=== PATIENT | female | born 1975 | race Caucasian/White ===

== ENCOUNTER 2024-08-30 20:08 | Emergency (ER) | payer OTHER ==
[~2024-08-30] VITALS: Ht 167.6 cm; Wt 120.2 kg
[2024-08-30 20:18] VITALS: PULSE 88; RESP 18; TEMP 97.1
[2024-08-30] MEDS: TRAMADOL HCL 50 MG TAB PO ONE (21:00)
[2024-08-30] MEDS: IBUPROFEN 600 MG TAB PO STA (21:00)
[2024-08-30] MEDS ORDERED: NAPROXEN250 MG PO (21:22)
[2024-08-30] MEDS ORDERED: LISINOPRIL-HCT1 EAC1 PO (21:23)
[2024-08-30 21:36] VITALS: BP 131/97; PULSE 86; RESP 18; TEMP 97.5; O2SAT 100
== END 2024-08-30 21:36 | disposition home or self-care (01) ==
LOC: FSED 20:13
DX: M25.571 Pain in right ankle and joints of right foot (principal); M76.61 Achilles tendinitis, right leg; M25.471 Effusion, right ankle; Z76.0 Encounter for issue of repeat prescription; I10 Essential (primary) hypertension; E03.9 Hypothyroidism, unspecified
CPT/HCPCS: 99283